=== PATIENT | male | born 1985 | race Caucasian/White ===

== ENCOUNTER → 2021-01-15 11:12 | Outpatient (BNVA) | payer OTHER, SELFPAY | PROVIDERS: Family Provider Family Medicine; PCP Family Medicine; Visit Provider Nurse Practitioner Family | DX: J02.0 Streptococcal pharyngitis (principal) | CPT/HCPCS: 87880 ==

== ENCOUNTER 2021-04-07 01:49 | Emergency (ER) | payer OTHER, SELFPAY ==
[2021-04-07 01:55] VITALS: BP 128/89; PULSE 81; RESP 18; TEMP 36.4; O2SAT 98; BMI 23.7
[2021-04-07] MEDS: eye irrigation 30 mL Btl EYE-BOTH (02:10)
[2021-04-07] MEDS: tetracaine 0.5% Op Soln 4 mL Btl 1 DROP EYE-LEFT (02:11)
[2021-04-07] MEDS: lidocaine 1% INJ 20 mL INTRADERMA (02:11)
[2021-04-07] MEDS: fluorescein 1 mg Strip EYE-LEFT (02:11)
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
[2021-04-07] MEDS: tetanus-diphtheria tox (adult) 0.5 mL SDV IM (02:36)
[2021-04-07] MEDS: sulfacetamide 10% Op Soln 15 mL Btl 2 DROP EYE-LEFT (02:46)
== END 2021-04-07 02:49 | disposition home or self-care (01) ==
PROVIDERS: Emergency Provider Nurse Practitioner Family; PCP Family Medicine
DX: S05.02XA Injury of conjunctiva and corneal abrasion without foreign body, left eye, initial encounter (principal); S41.012A Laceration without foreign body of left shoulder, initial encounter; S01.312A Laceration without foreign body of left ear, initial encounter; S01.112A Laceration without foreign body of left eyelid and periocular area, initial encounter; X99.0XXA Assault by sharp glass, initial encounter; Z23 Encounter for immunization
CPT/HCPCS: 12013; 90471; 90714; 99283

== ENCOUNTER → 2025-04-05 14:13 | Outpatient (BNVA) | payer OTHER, SELFPAY | PROVIDERS: PCP Family Medicine; Visit Provider Registered Nurse Neonatal Intensive Care | DX: T78.1XXA Other adverse food reactions, not elsewhere classified, initial encounter (principal); X58.XXXA Exposure to other specified factors, initial encounter | CPT/HCPCS: 82785; 86001; 86003 ==